=== PATIENT | male | born 1935 | race Caucasian/White ===

== ENCOUNTER 2016-09-18 11:59 | Day surgery (SDC) | payer MEDICARE, OTHER ==
[~2016-09-18 11:59] MED LIST: DEMEROL 50 MG IJ ONE; Sodium Chloride 0.9% 1000 ML 1,000 ML ONE; VERSED 5 MG/5 ML IV ONE; XYLOCAINE 1% HCL 20 ML MDV ONE
[2016-09-18] MEDS ORDERED: Sodium Chloride 0.9% 1000 ML 1,000 ML IV SCH (13:00)
[2016-09-18 16:46] VITALS: O2SAT 98
[2016-09-18 17:01] VITALS: BP 140/90; PULSE 73
--- NOTE | 2016-09-19 10:46 | OP ---
SURGERY DATE/TIME: 09/18/2016 1420 PREOPERATIVE DIAGNOSIS: A 3 cm almost certainly malignant lesion left shoulder. POSTOPERATIVE DIAGNOSIS: A 3 cm almost certainly malignant lesion left shoulder. PROCEDURE: Excision of 3 cm lesion through a 3.5 x 5 cm elliptical excision and closure. SURGEON: Dank Couch M.D. ANESTHESIA: Local IVS. COMPLICATIONS: None. CONDITION: Stable. INDICATION: The patient has a malignant appearing lesion. DESCRIPTION OF PROCEDURE: Routine prep and drape. Time out performed. Elliptical excision mobilized moderately and then approximated with inverting 3-0 Vicryl followed by 4-0 Prolene. Sterile ointment applied. The patient tolerated the procedure satisfactorily.
== END 2016-09-18 16:50 | disposition home or self-care (01) ==
LOC: SDC 11:59
PROVIDERS: ATTEND Surgery
PROC: 0HBCXZX Excision of Left Upper Arm Skin, External Approach, Diagnostic (ICD-10-PCS; principal; 2016-09-18)
DX: C44.619 Basal cell carcinoma of skin of left upper limb, including shoulder (principal); L98.9 Disorder of the skin and subcutaneous tissue, unspecified
CPT/HCPCS: 36415; 88305; J2175; J2250